=== PATIENT | female | born 1995 | race Caucasian/White ===

== ENCOUNTER 2023-11-04 08:56 | Outpatient (CLI) | payer BC, SELFPAY ==
--- NOTE | ~2023-11-04 | US_ITS ---
EXAMINATION: US OB <=14 wk fetus w TV DATE: 11/04/2023 10:49 INDICATION: of indeterminate age with unknown last menstrual period TECHNIQUE: Real-time pelvic ultrasound utilizing both a transvaginal and transabdominal probe was pe rformed. The interpreting radiologist was not present for the study. COMPARISON: None. FINDINGS: The retroverted uterus measures 9.3 x 5.8 x 6.9 cm. There is an intrauterine gestational sac. A yolk sac and pole are identified. The crown rump length measures 1.1 cm, which correlates with an e stimated gestational age of 7 weeks and 1 days. heart motion is identified measuring 153 beats per minute (bpm) by M-mode Doppler. 2.9 x 2.0 x 0.7 cm anechoic subchorionic hematoma along the nory l margin of the gestational sac The right ovary measures 2.3 x 1.6 x 1.7 cm. 1 cm anechoic right ovarian cyst. The left ovary measure s 2.3 x 1.7 x 1.5 cm. Stricture flow identified in both ovaries on color Doppler. There is no free fl uid in the pelvis. IMPRESSION: 1. Single living fetus with heart rate of 153 bpm. 2. Gestational age by ultrasound of 7 weeks 1 day(s) +/- 5 day(s) with ultrasound estimated date of delivery (JENN) of 06/21/2024. 3. 2.9 x 2.0 x 0.7 cm subchorionic hematoma along the fundal margin of the gestational sac. Reviewed, dictated and finalized at location A. NG MACHINE OPERATOR IMPRESSION: 1. Single living fetus with heart rate of 153 bpm. 2. Gestational age by ultrasound of 7 weeks 1 day(s) +/- 5 day(s) with ultraso und estimated date of delivery (JENN) of 06/21/2024. 3. 2.9 x 2.0 x 0.7 cm subchorionic hematoma along the fundal margin of the gest ational sac.
== END 2023-11-04 08:57 | disposition home or self-care (01) ==
PROVIDERS: PCP Family Medicine; Visit Provider Obstetrics & Gynecology
DX: Z34.91 Encounter for supervision of normal pregnancy, unspecified, first trimester (principal); Z3A.01 Less than 8 weeks gestation of pregnancy
CPT/HCPCS: 76801; 76817

== ENCOUNTER 2024-06-07 08:53 | Outpatient (CLI) | payer BC, SELFPAY ==
[2024-06-07] VITALS (9 sets, daily range): BP systolic 133–142; BP diastolic 79–92; PULSE 76–84; BMI 36.6
[2024-06-07 09:23] LABS: Basophils Percent Auto 0.2 % (0.2-1.2); Eosinophils Absolute Auto 0.1 K/mm3 (0-0.3); Eosinophils Percent Auto 0.7 % (0-4.4); Hematocrit 32.1 % (37.0-47.0); Immature Granulocyte Absolute 0.07 K/mm3 (0.00-0.031); Immature Granulocyte Percent A 0.6 % (0-0.5); Lymphocytes Absolute Auto 2.21 K/mm3 (0.9-3.2); Mean Corpuscular HGB Conc 34.3 g/dl (32-36); Mean Corpuscular Volume 87.5 fl (80-100); Mean Platelet Volume 10.2 fl (7.4-10.4); Monocytes Absolute Auto 0.6 K/mm3 (0.1-0.6); Monocytes Percent Auto 5.3 % (2.6-8.5); Neutrophils Absolute Auto 8.6 K/mm3 (1.3-6.7); Neutrophils Percent Auto 74.2 % (45.5-73.1); Platelet Count Result 261 k/mm3 (150-375); Red Blood Count 3.67 M/mm3 (4.2-5.4); Red Cell Distribution Width 13.5 % (11.5-14.5); White Blood Count 11.6 K/mm3 (4.5-10.0)
[2024-06-07 09:31] LABS: Alanine Aminotransferase 17 U/L (6-35); Albumin Level 3.2 g/dL (3.5-5.1); Alkaline Phosphatase 106 U/L (38-126); Anion Gap 10 mmol/L (4-12); Aspartate Amino Transferase 24 U/L (14-36); Bilirubin,Total 0.1 mg/dL (0.2-1.3); Blood Urea Nitrogen 8 mg/dL (7-17); Calcium 9.3 mg/dL (8.4-10.2); Carbon Dioxide 18 mmol/L (22-30); Chloride 106 mmol/L (98-107); Estimated Glomerular Filt Rate > 60; Glucose 84 mg/dL (65-110); Potassium 3.8 mmol/L (3.4-5.0); Sodium 134 mmol/L (137-145); Uric Acid 5.5 mg/dL (2.5-7.5)
[2024-06-07 09:34] LABS: Creatinine Urine 56.2 mg/dL; Total Protein Urine Random 69 mg/dL; Ur Ttl Prot Creatinine Ratio 1.23 mg/mg (0-0.20)
[2024-06-07 09:35] LABS: Add Urine Microscopic? YES; Appearance Urine Cloudy (Clear); Bacteria Urine 2+ /hpf; Bilirubin Urine Negative (Negative); Blood Urine Negative (Negative); Color Urine Yellow (Yellow); Glucose Urine UA Negative (Negative); Ketones Urine Negative (Negative); Leukocyte Esterase Ur Negative LEU/UL (Negative); Need Manual Microscopic Reviewed; Nitrate Urine Negative (Negative); Non Pathogenic Casts 0-2; Protein Urine 1+ mg/dL (Negative); RBC Urine 0-2 /hpf (0-2); Specific Grav Ur 1.009 (1.001-1.035); Squamous Epithelial Cell Urine Few /hpf (Few); Urobilinogen Urine 0.2 mg/dL (<2.0)
--- NOTE | 2024-06-07 10:44 | PC.NURSE ---
Dr. Miles Kuhn returned page and informed of BP's , labs including elevated random urine total protein / creatinine ratio. Order received to have pt take another 100 mg of her Labetalol by mouth now and then will take 200 mg by mouth every 12 hrs. To scheduled pt for IOL tonight with Cervidil. OK to discharge to home.
== END 2024-06-07 11:02 | disposition home or self-care (01) ==
LOC: ANHOBOP 08:59 → ANHLDR 09:01
PROVIDERS: PCP Family Medicine; Visit Provider Obstetrics & Gynecology
DX: O13.9 Gestational [pregnancy-induced] hypertension without significant proteinuria, unspecified trimester (principal)
CPT/HCPCS: 36415; 59025; 80053; 81001; 82570; 84156; 84550; 85025; 87086; 99199

== ENCOUNTER 2024-06-07 17:18 | Inpatient (IN) | payer BC, SELFPAY ==
[2024-06-07] VITALS (17 sets, daily range): BP systolic 127–152; BP diastolic 73–101; PULSE 70–90; TEMP 37.2
--- NOTE | 2024-06-07 17:37 | LDADM ---
This patient, Era Gann, was admitted to Labor/Delivery/Recovery 103 on 06/07/24 at 17:18. Plans for labor, pain management and were discussed with patient. Patient/family oriented to hospital policies and general routines including ID bracelet, bed and alarms, visiting hours, pain management, procedures, bathroom and other care routines, personal items, smoking policy, room service/diet and guest tray routines, infant security routines, and visiting hours. Patient/Family are encouraged to report perceived risks to care and to ask questions if they do not understand what they are told or what they should do. See OBIX for further documentation.
[2024-06-07 17:55] LABS: Basophils Percent Auto 0.3 % (0.2-1.2); Eosinophils Absolute Auto 0.1 K/mm3 (0-0.3); Eosinophils Percent Auto 0.4 % (0-4.4); Hematocrit 33.3 % (37.0-47.0); Hemoglobin 11.3 g/dL (12.0-15.0); Immature Granulocyte Absolute 0.08 K/mm3 (0.00-0.031); Immature Granulocyte Percent A 0.7 % (0-0.5); Lymphocytes Percent Auto 16.5 % (18.3-44.2); Mean Corpuscular HGB Conc 33.9 g/dl (32-36); Mean Corpuscular Hemoglobin 29.7 pg (26-34); Mean Corpuscular Volume 87.4 fl (80-100); Mean Platelet Volume 10.6 fl (7.4-10.4); Monocytes Absolute Auto 0.8 K/mm3 (0.1-0.6); Neutrophils Absolute Auto 8.6 K/mm3 (1.3-6.7); Neutrophils Percent Auto 75.1 % (45.5-73.1); Platelet Count Result 274 k/mm3 (150-375); Red Blood Count 3.81 M/mm3 (4.2-5.4); Red Cell Distribution Width 13.7 % (11.5-14.5); White Blood Count 11.5 K/mm3 (4.5-10.0)
[2024-06-07 18:32] LABS: Rapid Plasma Reagin Non-Reactive (NonReactive)
[2024-06-07 18:47] LABS: HIV 1/2 Ab P24 Ag Result Negative (Negative)
[2024-06-07] MEDS: DINOPROSTONE 10 MG VAG INSERT VAGINAL (18:52)
[2024-06-07] MEDS: LABETALOL HCL 100 MG TABLET 200 MG PO (21:22)
[2024-06-08] VITALS (130 sets, daily range): BP systolic 97–154; BP diastolic 52–122; PULSE 35–130; RESP 14–18; TEMP 36.2–37.1; O2SAT 92–100; BMI 36.6
[2024-06-08] MEDS: LACTATED RINGERS 500 ML 999 ML IV CONT (03:48)
--- NOTE | 2024-06-08 04:32 | WPDANESEPP ---
Anes - Eval Pre Procedure Procedure: Labor Epidural Date/Time: 06/08/24 04:32 Surgeon: Mesfin Preop Diagnosis: Labor Pain Pre Op Diagnosis: Induction of Labor Patient Data Age: 28 Gender: F Height: Weight: Last Vital Signs Temp 37.2 C 06/07/24 19:00 Pulse 81 06/08/24 04:30 BP 140/77 06/08/24 04:30 Pulse Ox 99 06/08/24 04:30 O2 Del Method Room Air 06/07/24 17:35 Allergies Allergy/AdvReac Type Severity Reaction Status Date / Time No Known Allergies Allergy Unverified 12/18/19 16:42 Home Medications Medication Instructions Recorded Confirmed Type labetalol 100 mg tablet 200 mg PO Q12H 06/01/24 06/07/24 History vit no.95-ferrous 1 tablet PO DAILY 06/07/24 06/07/24 History fumarate 28 mg-folic acid 800 mcg tablet () Laboratory Tests 06/07/24 17:31 WBC 11.5 H K/mm3 (4.5-10.0) RBC 3.81 L M/mm3 (4.2-5.4) Hgb 11.3 L g/dL (12.0-15.0) Hct 33.3 L % (37.0-47.0) MCV 87.4 fl (80-100) MCH 29.7 pg (26-34) MCHC 33.9 g/dl (32-36) RDW 13.7 % (11.5-14.5) Plt Count 274 k/mm3 (150-375) MPV 10.6 H fl (7.4-10.4) Immature Gran % (Auto) 0.7 H % (0-0.5) Neut % (Auto) 75.1 H % (45.5-73.1) Lymph % (Auto) 16.5 L % (18.3-44.2) Isabel[place] % (Auto) 7.0 % (2.6-8.5) Eos % (Auto) 0.4 % (0-4.4) Baso % (Auto) 0.3 % (0.2-1.2) Lymph # (Auto) 1.90 K/mm3 (0.9-3.2) Isabela # (Auto) 0.8 H K/mm3 (0.1-0.6) Eos # (Auto) 0.1 K/mm3 (0-0.3) Baso # (Auto) 0.0 K/mm3 (0.0-0.1) Abs Immat Gran (auto) 0.08 H K/mm3 (0.00-0.031) Absolute Neuts (auto) 8.6 H K/mm3 (1.3-6.7) Absolute Nucleated RBC 0.000 K/mm3 (0.0-0.012) Nucleated RBC % 0.0 % (0.0-0.2) RPR Non-reactive (NonReactive) HIV 1&2 Ab/P24 Ag 4thGn Negative (Negative) Blood Type A Positive Antibody Screen Negative : gestational age (, JENN 06/18/24) Patient hx anesthesia problems: none Family hx anesthesia problems: none Results Review: All pre-operative results and documents have been reviewed as part of the pre-operative evaluation. [facility] Past Medical History Medical History Benign paroxysmal positional vertigo due to bilateral vestibular disorder (~11/2017) CT of the brain without contrast on 11/30/2017 revealed no suspicious findings. BMI 33.0-33.9,adult Dizziness Eczema (~10/25/20) dyshidrotic eczema on hands Encounter for wellness examination in adult Exposure to COVID-19 virus Fatigue TSH 2.08 with free T4 1.3 on 06/01/2023. Nevus Obesity (BMI 30.0-34.9) Vitamin B12 deficiency level normal at 514 with folic acid 19.3 , iron 150 with 41% saturation and ferritin 38 and hemoglobin 14.7 on 06/01/2023. Family History Family History Other Patient denies significant medical history Social History Social History Smoking status: Never smoker Alcohol intake: current Drinks per week: 2 Alcohol use details: wine Substance use: never Substance use type: does not use Do You Feel Safe in your Home?: Yes Lack of Transportation: No Lack of Food: Never True Current Housing: I Have Housing Concerned About Future Housing: No Difficulty Paying Gas/Electric Bills: No Difficulty Paying for Meds: No Currently Unemployed: No Education: Don't Know Difficulty w/ Childcare or Family Care: No Spiritual care concerns: No Exam Day of Procedure 06/08/24 04:32 Patient weight: obese Heart: regular rate and rhythm Lungs: normal air movement Airway: Mallampati scale class II Neurological: alert and oriented
[2024-06-08] MEDS: OXYTOCIN 30 UNITS/NS 500 ML 30 UNITS/500 ML BAG 6 UNITS IV CONT (05:40)
--- NOTE | 2024-06-08 05:40 | PM.IMHP ---
H&P: HPI History of Present Illness Date/Time: 06/08/24 05:40 Chief Complaint: Hypertension at term Narrative: 28 year 1 para 0 whose last menstrual period was October 10, 2023, EDC is 06/18/2024, confirmed by 8 week ultrasound, presents at 38 half weeks gestation for induction of labor secondary to elevated blood pressures. PIH the diastolics have been running 90 to 100s. She has been labetalol for chronic hypertension and unknown has overlying gestational hypertension. Her group B strep screen is negative PMFSH Past Medical History Medical History Benign paroxysmal positional vertigo due to bilateral vestibular disorder (~11/2017) CT of the brain without contrast on 11/30/2017 revealed no suspicious findings. BMI 33.0-33.9,adult Dizziness Eczema (~10/25/20) dyshidrotic eczema on hands Encounter for wellness examination in adult Exposure to COVID-19 virus Fatigue TSH 2.08 with free T4 1.3 on 06/01/2023. Nevus Obesity (BMI 30.0-34.9) Vitamin B12 deficiency level normal at 514 with folic acid 19.3 , iron 150 with 41% saturation and ferritin 38 and hemoglobin 14.7 on 06/01/2023. Family History Family History Other Patient denies significant medical history Social History Social History Smoking status: Never smoker Alcohol intake: current Drinks per week: 2 Alcohol use details: wine Substance use: never Substance use type: does not use Do You Feel Safe in your Home?: Yes Lack of Transportation: No Lack of Food: Never True Current Housing: I Have Housing Concerned About Future Housing: No Difficulty Paying Gas/Electric Bills: No Difficulty Paying for Meds: No Currently Unemployed: No Education: Don't Know Difficulty w/ Childcare or Family Care: No Spiritual care concerns: No Meds Home Medications and Allergies Home Medications Medication Instructions Recorded Confirmed Type labetalol 100 mg tablet 200 mg PO Q12H 06/01/24 06/07/24 History vit no.95-ferrous 1 tablet PO DAILY 08/28/24 08/28/24 History fumarate 28 mg-folic acid 800 mcg tablet () Allergies Allergy/AdvReac Type Severity Reaction Status Date / Time No Known Allergies Allergy Unverified 12/18/19 16:42 Vital Signs Vital Signs - 24 hr 06/07/24 17:35 06/07/24 18:00 06/07/24 18:15 Temperature Pulse Rate 81 79 Blood Pressure 132/80 133/73 Pulse Oximetry Oxygen Delivery Room Air 06/07/24 18:30 06/07/24 18:45 06/07/24 19:00 Temperature 98.9 F Pulse Rate 81 79 90 Blood Pressure 135/78 133/78 143/86 H Pulse Oximetry Oxygen Delivery 06/07/24 19:15 06/07/24 19:30 06/07/24 19:45 Temperature Pulse Rate 88 82 84 Blood Pressure 131/85 137/89 135/89 Pulse Oximetry Oxygen Delivery 06/07/24 20:00 06/07/24 20:16 06/07/24 20:31 Temperature Pulse Rate 78 86 85 Blood Pressure 145/84 H 149/94 H 143/101 H Pulse Oximetry Oxygen Delivery 06/07/24 20:46 06/07/24 21:01 06/07/24 21:23 Temperature Pulse Rate 70 76 81 Blood Pressure 138/78 132/83 142/87 H Pulse Oximetry Oxygen Delivery 06/07/24 21:31 06/07/24 23:00 06/08/24 02:37 Temperature Pulse Rate 80 84 80 Blood Pressure 152/90 H 127/80 145/86 H Pulse Oximetry Oxygen Delivery 06/08/24 02:45 06/08/24 03:01 06/08/24 03:31 Temperature Pulse Rate 87 83 89 Blood Pressure 141/88 H 149/85 H 129/77 Pulse Oximetry Oxygen Delivery 06/08/24 03:46 06/08/24 04:01 06/08/24 04:16 Temperature Pulse Rate 78 88 82 Blood Pressure 140/73 142/83 H 126/66 Pulse Oximetry Oxygen Delivery 06/08/24 04:30 06/08/24 04:35 06/08/24 04:36 Temperature Pulse Rate 81 91 Blood Pressure 140/77 151/70 H Pulse Oximetry 99 100 Oxygen Delivery 06/08/24
[2024-06-08] MEDS: LACTATED RINGERS 1,000 ML 125 ML IV CONT (07:51)
[2024-06-08] MEDS: ONDANSETRON INJ 4 MG/2 ML VIAL IV PUSH (08:00)
--- NOTE | 2024-06-08 09:03 | PM.OBPNLAB ---
Pain Control Date/time seen: 06/08/24 09:03 Pain control: tolerating well and epidural Pelvic Exam Dilation (cm): 7 Effacement (%): 100 station: -1 Amniotic membrane status: Leaking
--- NOTE | 2024-06-08 10:39 | P.PCNOB_ITS ---
OB - Vaginal Delivery Note Procedure Delivery date: 06/08/24 Events: Gestational Hypertension Induction method: Per Cervidil Protocol Delivery augmentation: Rupture of Membranes and Pitocin Delivery monitor: External FHT and Internal Uterine Route of delivery: Episiotomy description: None Laceration Description: Perineal - 2nd Degree Delivery repair: vicryl Specimen: No Quantitative Blood Loss (ml): 61 Anesthesia type: Epidural Disposition: Floor Complications: No immediate complications Narrative: Patient was admitted on the evening of 06/07/2024 for elevated blood pressures at 38 half weeks gestation. Artificial rupture membranes performed in the a.m. after Cervidil in the evening. She progressed unremarkable 1st stage of labor to completely dilated with epidural anesthesia. Which is complete she pushed delivered the head spontaneously in the CORWIN position. Anterior posterior shoulder delivered spontaneously. Cord clamped x2 cut passed off the table given Apgars of 9 at minute 5minutes. Cord blood was drawn. Placenta 20 of Pitocin placed IV help firm. After speculum lateral sidewalls a second- degree midline laceration was noted which did not extend. This was closed with layered 3-0 Vicryl. Blood loss was estimated 61cc. Sponge, needle, instrument counts were correct. There were no immediate complications [place] Baby Date of : 06/08/24 Time of : 10:21 Gestational Age by Date: 38 Infant gender: Female presentation: vertex position: Right Occiput Anterior Placenta delivery description: Spontaneous Cord Vessel Description: 3 Vessels score one minute: 9 score five minutes: 9
--- NOTE | 2024-06-08 10:41 | PM.DS ---
DS: Admitting Diagnosis Discharge Date 06/10/2024 Admitting Diagnosis term /gestational hypertension DS: Discharge Diagnosis Discharge Diagnosis (1) Chronic hypertension: Code(s): I10 - Essential (primary) hypertension Status: Acute (2) Term : Code(s): Z34.90 - Encounter for supervision of normal , unspecified, unspecified trimester Status: Acute DS: Summary Hospital Course Reason for hospitalization: patient was admitted for induction of labor via Cervidil on 06/07 12:00 p.m.. She underwent spontaneous vaginal delivery on 06/08 24. Hospital Course: Patient's hospital course unremarkable. She remained afebrile. She was up, voiding without difficulty, eating regular diet, ambulating, generally complaints. Time Spent with Patient Time attestation: Total time spent providing and/or coordinating discharge services: Exam Const: General: cooperative, healthy appearing and comfortable Nutritional Appearance: average body habitus Orientation/consciousness: oriented to person, oriented to place and oriented to time HENMT: Head: normal to inspection Resp: Effort & Inspection: normal respiratory effort Cardio: Rate: regular rate Rhythm: regular rhythm Heart sounds: S1 normal heart sound present and S2 normal heart sound present GI: Inspection: normal to inspection DS: Data Data Completed and Pending Labs on day of discharge: Labs from last 24 hours 06/07/24 17:31 WBC 11.5 H RBC 3.81 L Hgb 11.3 L Hct 33.3 L MCV 87.4 MCH 29.7 MCHC 33.9 RDW 13.7 Plt Count 274 MPV 10.6 H Immature Gran % (Auto) 0.7 H Neut % (Auto) 75.1 H Lymph % (Auto) 16.5 L Carson % (Auto) 7.0 Eos % (Auto) 0.4 Baso % (Auto) 0.3 Lymph # (Auto) 1.90 [place] # (Auto) 0.8 H Eos # (Auto) 0.1 Baso # (Auto) 0.0 Abs Immat Gran (auto) 0.08 H Absolute Neuts (auto) 8.6 H Absolute Nucleated RBC 0.000 Nucleated RBC % 0.0 RPR Non-reactive HIV 1&2 Ab/P24 Ag 4thGn Negative Blood Type A Positive Antibody Screen Negative Discharge Plan Discharge Attending physician on discharge: Reuben Toledo Consulting providers: Tracee Dawn; Nga Valdez; Lisa Romero Discharging Clinician: Reuben Toledo Patient Disposition: Home, Self-Care Activity: may shower, no straining and pelvic rest Diet: heart healthy Discharge Instructions: Blood Pressure Instructions Check your BP at home daily. Keep a log and bring to your next visit. Report any BP readings over 160/110 to provider immediately. (Please call if either number is elevated) Headache that does not improve with 2 Extra Strength Tylenol (you may take Ibuprofen if not ) Visual changes such as blurred vision or flashes of light Pain under the right breast Significant increase in swelling with any of the above symptoms * Make sure you are sitting for at least 5 minutes before checking your blood pressure. Keep legs uncrossed and avoid talking while taking your blood pressure. Depression Notify provider for signs or symptoms. These may include- Feelings: Feeling anxious, angry, hopeless, guilt, or loss of interest/pleasure in activities you normally enjoy. Mood swings or panic attacks. General: Extreme fatigue, loss of your appetite, feeling restless. Crying excessively, irritability, insomnia Psychological: Lack of concentration, depression or fear, unwanted thoughts Weight: Significant gain or loss Safety: Thoughts of harming yourself or your baby. Education: Mom and Baby Guide Given to: Mother Follow-Up: Call your delivering provider's office for an appointment to be seen in: 6 Weeks Mom and baby should come to the [facility] for the follow-up appointment. Appointment Date/Time: June 12, 2024 at 11:00 am What to expect
[2024-06-08] MEDS: OXYTOCIN 30 UNITS/NS 500 ML 30 UNITS/500 ML BAG 125 UNITS IV CONT (10:55)
[2024-06-08] MEDS: IBUPROFEN 600 MG TABLET PO ×2 (11:38→18:57)
[2024-06-08] MEDS: ACETAMINOPHEN 325 MG TABLET 650 MG PO ×2 (11:39→17:21)
[2024-06-08] MEDS: WITCH HAZEL 40 PADS 1 PAD TOPICAL (11:41)
[2024-06-08] MEDS: BENZOCAINE 20% AER SPR (*SP) 56 GM CAN 1 SPRAY TOPICAL (11:41)
--- NOTE | 2024-06-08 13:18 | OBPPTRN ---
Patient transferred to post room #292 via wheelchair. Support person present. Oriented to unit, room, information board, rooming in, admission packet and security measures. Patient verbalizes understanding.
--- NOTE | 2024-06-08 15:43 | PC.NURSE ---
1445. Introductions were made, then consulted with patient to assess needs related to . Mother led the conversation with her?plans to feed?her infant and the?experience so far. Mother explains that it is her intent to exclusively BF infant for her first year of life, and she also plans to pump and feed when she goes back to work. Encouraged understanding of the benefits of skin to skin (demonstrating unwrapping infant and placing upright on her chest), stimulating with massage touch, changing positions to encourage wakefulness, how to watch for early feeding cues, responsive feeding, feeding on demand (aiming for 8-12 times in 24 hours, about every 2-3 hours), milk production, building/maintaining a milk supply, duration of feeding, signs of adequate intake/output and how to record on the feeding sheet. Mother works well with her with encouragement and education. Reviewed positioning and ear, shoulder, hip alignment, supporting the breast to facilitate a deep latch, asymmetrical latch (off-center), leading with the chin with a big, open, wide gape and body close to mother. not showing any feeding cues at this time, sound asleep. Repositioned and still sleepy and no feeding cues present. Mom encouraged to watch for early feeding cues and do s2s until she is ready to attempt to feed next. Reviewed comfort measures of healing with a warm, wet washcloth to rinse breast, then leave open to air-dry, good handwashing when or touching the breast/nipples to prevent infection. Mother voiced understanding of skin to skin, stimulating with massage touch, responsive feedings, hand expressed colostrum, talking to to encourage if it has been 2 -2.5 hours since the start of the last , to call if does not latch, or if there is discomfort with . Resources used for education were facilitated with the visual educational handouts & mom and baby guide. Parents voiced understanding of information, demonstrated learning and will call if there is a request for assistance. Reported to the Primary RN.
--- NOTE | 2024-06-08 15:49 | PC.NURSE ---
1530. Mom called RN to assist with baby latching as she starting showing early feeding cues. Mom was attempting to latch upon RN's arrival in the room. opening with a wide gape and attempting to latch. Mom's nipples appear a little flat, had a hard time latching and staying on. Explained hand expression and mom attempted to hand express and was able to get a few drops from her nipples and fed to . with many attempts but was unsuccessful at maintaining a latch, & became sleepy at the breast. Reviewed positioning and alignment with mom. Mom encouraged to do s2s and watch for infants next early feeding cue, and attempt to relatch and feed then. Mom encouraged to call RNs phone number for assistance with next feed. Mom verbalized understanding and doing s2s at this time.
[2024-06-08] MEDS: DOCUSATE SODIUM 100 MG CAPSULE PO (17:23)
[2024-06-09 00:05] VITALS: BP 134/90
[2024-06-09 03:30] VITALS: BP 125/69; PULSE 85; RESP 12; TEMP 36.7; O2SAT 100
--- NOTE | 2024-06-09 06:59 | PM.OBPNVD ---
OB - PN: Subj Subjective Date/time seen: 06/09/24 06:59 Patient comments: no complaints and pain well controlled baby status: doing well and nursing well OB - PN: Obj Data Labs 06/07/24 17:31 OB - PN A/P Plan day: 1 Plan: routine care Time Spent With Patient Time: Total time spent is greater than 50% in coordination of care (as documented) at patient's floor/unit and/or counseling patient: Time with patient: less than 15 minutes Exam Const: General: cooperative, healthy appearing and comfortable Nutritional Appearance: average body habitus Orientation/consciousness: oriented to person, oriented to place and oriented to time Resp: Effort & Inspection: normal respiratory effort Cardio: Rate: regular rate Rhythm: regular rhythm Heart sounds: S1 normal heart sound present and S2 normal heart sound present GI: Inspection: normal to inspection
[2024-06-09 07:40] VITALS: BP 126/82; PULSE 89; RESP 18; TEMP 37.1; O2SAT 99
[2024-06-09] MEDS: ACETAMINOPHEN 325 MG TABLET 650 MG PO ×2 (08:42→16:22)
--- NOTE | 2024-06-09 08:54 | WPDANLDPN2 ---
Anes-Prog Note L&D Date/Time: 06/09/24 08:54 Neuro status: Neuro function grossly intact. Cardiovascular status: normal Respiratory status: normal Airway patency: baseline Mental status: baseline Post-Op hydration status: normal Vital Signs: Last Vital Signs Temp 36.7 C 06/09/24 03:30 Pulse 85 06/09/24 03:30 Resp 12 06/09/24 03:30 BP 125/69 06/09/24 03:30 Pulse Ox 100 06/09/24 03:30 O2 Del Method Room Air 06/08/24 17:00 Pain score (VAS): 0 I/O: Intake & Output 06/08/24 06/09/24 06/09/24 23:59 07:59 15:59 Intake Total 300 Output Total 450 Balance -150 Post-procedural complaints: none Patient feedback: Patient satisfied with anesthetic care.
[2024-06-09 09:30] LABS: Hematocrit 31.1 % (37.0-47.0); Hemoglobin 10.7 g/dL (12.0-15.0)
--- NOTE | 2024-06-09 09:35 | PC.NURSE ---
Consulted with patient to assess needs related to . Discussed with mother her successes, concerns and any questions she has. We reviewed working with the , supporting breast, protecting her nipples with an optimal deep latch. Encouraged understanding the benefits of skin to skin, responding to feeding cues, frequencies of feeding 8-12 times in 24 hours (approximately 2-3 hours), duration of feedings, milk production. Reviewed positioning and alignment, supporting breast, off-centered (asymmetrical latch) and leading with the chin with big, open, wide gape. Infant latched to the [right] breast in [cross cradle] position. Education given to the mother of how to visualize the suckling (with good rocking jaw motion). The was [not able] to maintain latch for very long. When she stops sucking, she lets go of the nipple. We discussed attempts in the first 24 hours, but to look for effective and consistent feeds after 24 hours. Mom is going to pump and give whatever she gets and we will feed again in 2 hours. Mother voiced understanding of the education shared, to call for assistance if the does not latch or if there is discomfort with . Reported to the Primary RN.
[2024-06-09 12:49] VITALS: BP 124/80; PULSE 80; RESP 16; TEMP 37; O2SAT 99
--- NOTE | 2024-06-09 14:30 | PC.NURSE ---
Introductions were made and communication board updated. Mother is currently pumping. Flange size is correct and mother has colostrum. Mother will call this RN for next feeding.
--- NOTE | 2024-06-09 15:05 | PC.NURSE ---
This RN called to room for assistance latching . sleepy, educated parents on techniques to wake a sleepy baby. Attempted to latch but is not interested in nursing and would not suck on breast or gloved finger. Mother instructed to do skin to skin and attempt to latch again in 30 minutes. Nipple shield given and education provided for shield use. Parents understand education and will call this RN for assistance when needed.
[2024-06-09 16:00] VITALS: BP 141/80
--- NOTE | 2024-06-09 17:20 | PC.NURSE ---
This RN called to room for assitance with latching . Nipple shield in place and successfully latched to the right breast in football position.
[2024-06-09 18:20] VITALS: BP 129/73; PULSE 87; RESP 12; TEMP 36.8; O2SAT 99
[2024-06-10 00:07] VITALS: BP 130/89
[2024-06-10 04:15] VITALS: BP 133/81
[2024-06-10 06:30] VITALS: BP 127/75; PULSE 99; RESP 16; TEMP 37; O2SAT 99
[2024-06-10] MEDS: MULTIVIT/MIN/PREN/FOL AC/IRON TABLET 1 TAB PO (09:57)
[2024-06-10] MEDS: WITCH HAZEL 40 PADS 1 PAD TOPICAL (09:57)
--- NOTE | 2024-06-10 09:59 | PM.OBPNVD ---
OB - PN: Subj Subjective Date/time seen: 06/10/24 09:05 Interval history: Doing well. Urinating without difficulty. Denies passing any large clots. Denies dizziness with ambulating. Tolerating po food and fluids. Bonding with . Patient comments: no complaints and pain well controlled baby status: nursing well feeding status: exclusively breast feeding OB - PN: Obj Data Labs 06/09/24 09:26 OB - PN A/P Assessment and Plan (1) Chronic hypertension: Code(s): I10 - Essential (primary) hypertension Status: Acute Plan day: 2 Comments: 1 Mild range BP. Denies FELIZ, visual changes, RUQ pain, or increase in edema. Time Spent With Patient Time: Total time spent is greater than 50% in coordination of care (as documented) at patient's floor/unit and/or counseling patient: Review of Systems Review of Systems: All systems reviewed & are unremarkable except as noted in HPI and below Exam Narrative: Alert and oriented. Mood is pleasant and cooperative. Perineum with minimal edema. Fundus firm and below umbilicus. Const: General: cooperative, healthy appearing, no acute distress and alert Orientation/consciousness: patient oriented x3 Limitations: no limitations Resp: Effort & Inspection: normal respiratory effort and able to speak in complete sentences Auscultation: clear to auscultation bilaterally Cardio: Rate: regular rate GI: Inspection: normal to inspection Auscultation: normal bowel sounds : General: Yes bladder normal to palpation External Female Exam: other (lochia WNL) Bimanual exam- vagina & uterus: bladder normal to palpation Other: Fundus firm and below U Skin: General skin exam: normal color and no rashes or lesions noted Neuro: General: patient oriented x3 and moves all extremities Cognition (Neuro): normal cognition Extrem: General: normal to inspection and no calf tenderness Psych: Appearance: grossly normal Mental Status: mental status grossly normal Affect: normal affect Thought process: Normal thought process present
[2024-06-10 11:51] VITALS: BP 127/76; PULSE 76; RESP 16; TEMP 36.6; O2SAT 99
--- NOTE | 2024-06-10 12:20 | PC.NURSE ---
Consulted with mother concerning needs and she shared her ability to independently latch infant with breast shield optimally without pain. Mother is feeding appropriately for growth of infant and understands stimulating infant to eat if needed. Infant has had appropriate feedings in the last 24 hours meets the outcomes for weight, output, blood sugar and jaundice at this time. Reinforced understanding of milk production, transition of milk, signs of adequate intake, transition of stool, prevention/relief of engorgement, plugged ducts, mastitis, responsive watching for feeding cues, the different methods of stimulating infant to breastfeed 1-3 hours after the start of the last feeding, community resources, and when to call a provider using the resource of the feeding sheet along with the mom and baby guide. Mother voiced understanding of the information shared, is confident to continue effectively her infant at home, when to call for assistance, denies any additional assistance or education at this time. Reported to the Primary RN.
[2024-06-12 11:55] VITALS: BP 126/88; PULSE 81; RESP 18; TEMP 36.7; O2SAT 99
== END 2024-06-10 14:15 | disposition home or self-care (01) | DRG 807 ==
LOC: ANHLDR 06-08 10:43 → ANHOB2 06-08 13:37
PROVIDERS: Admitting Provider Obstetrics & Gynecology; PCP Family Medicine; Visit Provider Obstetrics & Gynecology
DX: O10.92 Unspecified pre-existing hypertension complicating childbirth (principal); Z37.0 Single live birth; Z3A.38 38 weeks gestation of pregnancy; O70.1 Second degree perineal laceration during delivery
CPT/HCPCS: 36415; 59025; 80053; 81001; 82570; 84156; 84550; 85014; 85018; 85025; 86592; 86703; 86850; 86900; 86901; 87086; 99199; A9270; G0432; J2405; J2590; J2795; J7120